=== PATIENT | male | born 1980 | race Caucasian/White ===

== ENCOUNTER 2025-08-16 09:28 | Outpatient (CLI) | payer SELFPAY ==
[2025-08-16 10:04] LABS: #Basophils Less than 0.03 10x3/uL (0.0-0.2); #Eosinophils 0.20 10x3/uL (0.0-0.5); #Monocytes 0.48 10x3/uL (0.0-1.1); #Neutrophils 4.03 10x3/uL (1.5-8.4); %Basophils 0.3 % (0.0-2.0); %Eosinophils 3.2 % (0.0-6.0); %Lymphocytes 23.7 % (18.0-47.0); %Monocytes 7.7 % (0.0-10.0); %Neutrophils 64.9 % (40.0-75.0); Hematocrit 47.6 % (38.8-50.0); Hemoglobin 15.8 g/dL (13.5-17.5); Mean Corpuscular Hemoglobin 29.3 pg (27.0-33.0); Mean Corpuscular Volume 88.1 fL (81.2-95.1); Platelet Count 349 10x3/uL (150-450); Red Blood Cell (RBC) Count 5.40 10x6/uL (4.32-5.72); White Blood Cell (WBC) Count 6.21 10x3/uL (3.5-10.5)
[2025-08-16 10:52] LABS: Calcium 9.4 mg/dL (7.8-10.44); Chloride 107 mmol/L (98-107); Potassium 4.3 mmol/L (3.5-5.1); Sodium 141 mmol/L (136-145)
[2025-08-16 11:48] LABS: Anion Gap 13 mmol/L (10-20); BUN (Urea Nitrogen) 17 mg/dL (8.9-20.6); Calc. Creatinine Clearance 0 mL/min (70-130); Carbon Dioxide 25 mmol/L (22-29); Glucose 105 mg/dL (70-105)
== END 2025-08-16 09:29 | disposition home or self-care (01) ==
LOC: CSHLAB 09:28
PROVIDERS: ATTEND Surgery
DX: Z01.818 Encounter for other preprocedural examination (principal); K43.9 Ventral hernia without obstruction or gangrene
CPT/HCPCS: 80048; 85025; 93005; 93010